=== PATIENT | female | born 1950 | race Caucasian/White ===

== ENCOUNTER → 2017-01-06 | Outpatient (CLI) | payer OTHER, MEDICARE ==
[~2017-01-06] VITALS: Ht 157.5 cm; Wt 104.3 kg
[~2017-01-06] MED LIST: CENTRUM SILVER1 EAC4 PO; CIPRO250 M1; ENDOCET 5-3251 EACH; FOLIC ACID 40400 MCG PO; GLUCOPHAGE500 MG PO; IRON325; LISINOPRIL20 MG PO; LOVENOX; METHOTREXA25 MG/1 ML SUBQ; MOBIC7.5 MG PO; OMEPRAZOLE 20 M20 M1 PO; PREDNISONE 5 MG5 M1 PO; SIMVASTATIN40 MG PO; [UNRECOGNIZED DRUG - OTHER] PO
--- NOTE | ~2017-01-06 | P ---
[facility] [place] [address] PROCEDURE REPORT Name: KISHAN IBRAHIM Room #: REG [facility]#: [id number] Admission: 01/06/17 Attend Phys: Satinder Solano MD Discharge: Date of : 48 Report #: [id number] THIS REPORT FOR: //name// CC: [facility] physician/PCP Satinder Sun MD OUTPATIENT COLONOSCOPY REPORT BRIEF HISTORY: The patient is a 66-year-old woman with history of colon adenoma. She presents for surveillance colonoscopy. PREOPERATIVE DIAGNOSIS: High risk screening colonoscopy due to history of colon polyps. POSTOPERATIVE DIAGNOSES: Moderately severe left sided diverticulosis coli with few scattered diverticula in proximal colon. MEDICATIONS: Deep sedation with propofol per anesthesia. SPECIMEN: None. ESTIMATED BLOOD LOSS: None. PROCEDURE: Colonoscopy to cecum. FINDINGS: Prior to propofol sedation, procedure of colonoscopy discussed with the patient as well as potential risks and its complications. She indicates she understands and desires to proceed. DESCRIPTION OF PROCEDURE: With the patient in left lateral decubitus position, digital examination was completed which revealed no abnormalities. Subsequently, the [employer] video colonoscope was introduced into the rectum, advanced under direct vision to the cecum. Done with some difficulty she had a tortuous difficult sigmoid colon. However, once we got beyond the sigmoid colon. Scope passed easily into the proximal colon, then ultimately into in the cecum which was identified by the ileocecal valve and the appendiceal orifice. However, due to loop in the scope, we could not cross the ileocecal valve. At that point, the scope was slowly withdrawn and careful circumferential views obtained. Upon slow withdrawal of the scope, the Prep was good. Mucosa normal limits, normal vascular pattern, normal light reflex. As we withdrew the scope, no neoplastic lesions were seen. No polyps were seen on this examination. In the proximal colon, a few scattered diverticula were seen. However, in left colon, in particular the sigmoid colon, moderately severe diverticular disease was seen. Scope was withdrawn in the rectum. Upon retroflexion, no abnormalities were seen. Scope was withdrawn. The patient tolerated the procedure well. [address] [address] PROCEDURE REPORT Name: KISHAN IBRAHIM Room #: [facility]#: [id number] Admission: 01/06/17 Attend Phys: Satinder Solano MD Discharge: Date of : 48 Report #: [id number] CONDITION OF THE PATIENT UPON DISCHARGE: Following procedure, the patient drowsy, aroused and will be discharged home when fully ambulatory. INSTRUCTIONS TO THE PATIENT AND FAMILY AT THE TIME OF DISCHARGE: No neoplastic lesions were seen. Suggest followup colon exam in 10 years as no polyps were seen today and she had small tubular adenomas on the last exam. Suggest high fiber diet for the diverticular disease. She will return to care of Dr. Adriane Sun and return to see me as needed. Last colonoscopy was about 5-1/2 years ago. Withdrawal time from cecum was 16 minutes. By: 1100 1329 Satinder Solano MD /nt
== END ==
LOC: GI 08:34
DX: Z09 Encounter for follow-up examination after completed treatment for conditions other than malignant neoplasm (principal); K57.30 Diverticulosis of large intestine without perforation or abscess without bleeding; Z87.891 Personal history of nicotine dependence; E78.00 Pure hypercholesterolemia, unspecified; K21.9 Gastro-esophageal reflux disease without esophagitis; E11.9 Type 2 diabetes mellitus without complications; Z96.653 Presence of artificial knee joint, bilateral; M06.80 Other specified rheumatoid arthritis, unspecified site
CPT/HCPCS: 62110; 62900